=== PATIENT | female | born 1960 | race Caucasian/White ===

== ENCOUNTER 2016-07-05 02:36 | Emergency (ER) | payer MEDICAID ==
[2016-07-05 03:00] VITALS: RESP 18
--- NOTE | 2016-07-05 03:02 | C.PDOC ---
History Of Present Illness Patient is a 56 year old male who presents to the ER with a complaint of chest pain after doing heavy lifting at work tonight. Patient states the pain radiates from the anterior chest wall to the back and pain increases with deep breath and movement. Denies nausea, weakness, or any other injury. Chief Complaint (Nursing): Chest Pain History Per: Patient History/Exam Limitations: no limitations Onset/Duration Of Symptoms: Hrs Current Symptoms Are (Timing): Still Present Associated Symptoms: denies: Nausea Exacerbating Factors: Movement, Deep Breathing Past Medical History Reviewed: Historical Data, Nursing Documentation, Vital Signs Vital Signs: Last Vital Signs Temp 97.8 F 07/05/16 02:53 Pulse 57 L 07/05/16 02:53 Resp 18 07/05/16 02:53 BP 164/89 H 07/05/16 02:53 Pulse Ox 99 07/05/16 04:23 - Medical History PMH: No Chronic Diseases Surgical History: No Surg Hx Family History: States: Unknown Family Hx - Social History Hx Alcohol Use: No Hx Substance Use: No Review Of Systems Cardiovascular: Positive for: Chest Pain (Anterior chest wall) Gastrointestinal: Negative for: Nausea Musculoskeletal: Positive for: Back Pain. Negative for: Neck Pain, Shoulder Pain, Leg Pain Neurological: Negative for: Weakness Physical Exam - Physical Exam Appears: Well, Non-toxic, No Acute Distress Skin: Normal Color, Warm, Dry Head: Atraumatic, Normacephalic Oral Mucosa: Moist Chest: Tenderness (On palpation, anterior wall) Cardiovascular: Rhythm Regular, No Murmur Respiratory: Normal Breath Sounds, No Rales, No Rhonchi, No Wheezing Gastrointestinal/Abdominal: Soft, No Tenderness Neurological/Psych: Oriented x3, Normal Speech, Normal Cognition ED Course And Treatment - Laboratory Results Result Diagrams: 07/05/16 03:22 07/05/16 03:22 ECG: Interpreted By Me, Viewed By Me ECG Rhythm: Sinus Bradycardia ECG Interpretation: Normal, No Acute Changes Interpretation Of ECG: sinua bradycardia, no acute changes, normal tracing. Rate From EC O2 Sat by Pulse Oximetry: 99 (Room air) Pulse Ox Interpretation: Normal Progress Note: Patient was evaluated and cleared by crisis. Disposition Discussed With : Diego Garcia - Disposition Referrals: [facility] at [facility] [Outside] Disposition: HOME/ ROUTINE Disposition Time: 05:10 Condition: STABLE Prescriptions: Naproxen [Naprosyn Tab] 250 mg PO TIDPC #20 tab Instructions: Depression (DC), Chest Wall Pain (ED) Forms: Gen Discharge Inst Kittitian - POA Present On Arrival: None - Clinical Impression Clinical Impression: Depressive disorder, Chest wall pain - Scribe Statement The provider has reviewed the documentation as recorded by the Scribclarke Bethea All medical record entries made by the Leviibe were at my direction and personally dictated by me. I have reviewed the chart and agree that the record accurately reflects my personal performance of the history, physical exam, medical decision making, and the department course for this patient. I have also personally directed, reviewed, and agree with the discharge instructions and disposition.
[2016-07-05 03:31] LABS: BASO % 0.3 % (0.0-2.0); EOS # 0.3 K/uL (0.0-0.7); EOS % 2.7 % (0.0-4.0); HEMATOCRIT 34.5 % (34.0-47.0); LYMPH # 6.2 K/uL (1.0-4.3); LYMPH % 62.7 % (20.0-40.0); MEAN CELL VOLUME 79.4 fL (81.0-99.0); MEAN CORPUSCULAR HEMOGLOBIN 25.8 pg (27.0-31.0); MEAN CORPUSCULAR HGB CONC 32.4 g/dL (33.0-37.0); MONO # 0.7 K/uL (0.0-0.8); MONO % 6.8 % (0.0-10.0); PLATELET COUNT 379 K/uL (130-400); RED CELL DISTRIBUTION WIDTH 13.2 % (11.5-14.5); WHITE BLOOD COUNT 9.8 K/uL (4.8-10.8)
[2016-07-05 03:37] LABS: CHLORIDE 103 mmol/L (98-107); POTASSIUM 3.6 mmol/L (3.6-5.2); SODIUM 142 mmol/L (132-148)
[2016-07-05 03:39] LABS: GFR AFRICAN-AMERICAN > 60
[2016-07-05 03:40] LABS: ALB/GLOB RATIO 1.2 (1.0-2.1); ALKALINE PHOSPHATASE 76 U/L (38-126); ALT/SGPT 14 U/L (9-52); AST/SGOT 29 U/L (14-36); BLOOD UREA NITROGEN 12 mg/dL (7-17); CALCIUM 8.6 mg/dl (8.6-10.4); CARBON DIOXIDE 22 mmol/L (22-30); GLUCOSE,RANDOM 101 mg/dL (65-105); TOTAL PROTEIN 7.9 g/dL (6.3-8.3)
[2016-07-05 04:51] LABS: EOSINOPHIL 2 % (0-4); NEUTROPHIL 30 % (50-75); REACTIVE LYMPHOCYTES 4 % (0-0); TOTAL CELLS COUNTED 100
[2016-07-05 05:18] VITALS: BP 130/77; PULSE 50; TEMP 98; O2SAT 100
--- NOTE | 2016-07-05 08:23 | RAD ---
HISTORY: chest pain COMPARISON: No prior. TECHNIQUE: Chest PA and lateral FINDINGS: LUNGS: No active pulmonary disease. PLEURA: No significant pleural effusion identified. No pneumothorax apparent. CARDIOVASCULAR: Normal. OSSEOUS STRUCTURES: No significant abnormalities. VISUALIZED UPPER ABDOMEN: Normal. OTHER FINDINGS: None. IMPRESSION: No active disease.
--- NOTE | 2016-07-10 09:10 | CARD ---
APPROVED REPORT EKG Measurement Heart [id number] OR [id number] <Conclusion> Sinus bradycardia Otherwise normal ECG
== END 2016-07-05 06:28 | disposition home or self-care (01) ==
LOC: C.ER 02:36
DX: R07.89 Other chest pain (principal); F32.9 Major depressive disorder, single episode, unspecified
CPT/HCPCS: 71020; 80053; 84484; 85025; 85378; 93005; 96374; 99285; J1885

== ENCOUNTER 2017-04-18 10:57 | Emergency (ER) | payer MEDICAID, OTHER ==
[2017-04-18 11:08] VITALS: BMI 22.6
[2017-04-18] MEDS ORDERED: Tetanus/Diphtheria Toxoids 0.5 ml Syringe IM ONE ×2 (11:44→13:03)
--- NOTE | 2017-04-18 11:53 | C.PDOC ---
History Of Present Illness <Pk Lind - Last Filed: 04/18/17 23:06> <Michelle Rollins - Last Filed: 04/19/17 11:06> 56-year-old female, presents to the emergency department for evaluation of facial trauma, right wrist deformity, developed since yesterday after sustaining mechanical fall. Patient slipped and fell forward on ice, and scratched her nose, she tried to break her fall with her hand, and when she woke up this morning, she noted deformity to the area with worsening pain, resulting in her coming to the ED for evaluation. Denies LOC, syncope, severe headache, dizziness, visual changes, focal deficits, neck pain, CP, SOB, dyspnea ,abd. pain, N/V/D, back pain, denies weakness, sensory or vascular deficits to B /L UEs and LEs. Ambulate to Ed for evaluation, not in any apparent distress. ( Michelle Rollins) <Pk Lind - Last Filed: 04/18/17 23:06> - HPI History Per: Patient History/Exam Limitations: no limitations Injury Occurred (Timing): Days Ago: (1) Location Of Injury: Right: Hand, Wrist <Michelle Rollins - Last Filed: 04/19/17 11:06> - HPI Time Seen by Provider: 04/18/17 11:33 Chief Complaint (Nursing): Trauma Past Medical History Reviewed: Historical Data, Nursing Documentation, Vital Signs Family History: States: No Known Family Hx - Social History Hx Alcohol Use: No Hx Substance Use: No <Michelle Rollins - Last Filed: 04/19/17 11:06> Vital Signs: Last Vital Signs Temp 97.5 F L 04/18/17 18:36 Pulse 51 L 04/18/17 23:08 Resp 16 04/18/17 23:08 BP 110/81 04/18/17 23:08 Pulse Ox 98 04/18/17 23:08 Review Of Systems Respiratory: Negative for: Shortness of Breath Gastrointestinal: Negative for: Vomiting Musculoskeletal: Positive for: Hand Pain. Negative for: Neck Pain, Back Pain Neurological: Negative for: Weakness, Numbness, Headache, Dizziness <Michelle Rollins - Last Filed: 04/19/17 11:06> Physical Exam - Physical Exam Appears: Well, Non-toxic, No Acute Distress Skin: Warm, Dry Head: Normacephalic Eye(s): bilateral: PERRL Ear(s): Bilateral: Normal Nose: No Epistaxis, No Deformity, No Septal Hematoma, Other (superficial abrasion to the tip of nose) Oral Mucosa: Moist Tongue: Normal Appearing Lips: Normal Appearing Throat: Normal, No Erythema, No Drooling Neck: Normal ROM, No Midline Cervical Tenderness, No Paracervical Tenderness, No Step Off Deformity, Supple Chest: Symmetrical Cardiovascular: Rhythm Regular, No Murmur Respiratory: No Decreased Breath Sounds, No Accessory Muscle Use, No Rales, No Rhonchi, No Stridor, No Wheezing, Other (equal sounds bilaterally) Gastrointestinal/Abdominal: Soft, No Tenderness, No Distention, No Guarding Back: No Vertebral Tenderness, No Paraspinal Tenderness Extremity: Normal ROM (B/L LEs, and LUE), Tenderness (Right wrist), Capillary Refill (<2 seconds), Deformity (Right wrist, skin intact) Pulses: Right Radial: Normal, Left Femoral: Normal Neurological/Psych: Oriented x3, Normal Speech, Normal Motor, Normal Sensation, Normal Reflexes <Michelle Rollins - Last Filed: 04/19/17 11:06> ED Course And Treatment Reevaluation Time: 23:06 Reassessment Condition: Improved (pt hypersomnolent after procedural sedation and then ativan for probable emergence reactin to Ketamine, now has rested a few hours, wrist pain mild/moderate, ambulating through hallways, ,stable for d/ c home.) <Pk Lind - Last Filed: 04/18/17 23:06> O2 Sat by Pulse Oximetry: 96 (RA) Pulse Ox Interpretation: Normal - Other Rad Right wrist X-Ray: Read By Radiologist Interpretation: IMPRESSION: Comminuted impacted fracture of the distal radius. Soft tissue swelling. Osseous demineralization. - CT Scan/US CT max/face Other Rad Studies (CT/US): Radiology Report Reviewed CT/US Interpretation: Findings: Mild anterior midline scalp soft tissue swelling. The facial bones appear intact without acute displaced fracture. The orbits appear unremarkable. Temporomandibular joints are located. The mastoid air cells appear clear. The paranasal sinuses appear clear without air-fluid levels. Left tonsillar calcifications. The visualized brain appears unremarkable. Impression: Mild anterior midline scalp soft tissue swelling. No acute fracture identified. See above. <Michelle Rollins - Last Filed: 04/19/17 11:06> Disposition Doctor Will See Patient In The: Office Counseled Patient/Family Regarding: Studies Performed, Diagnosis <Pk Lind - Last Filed: 04/18/17 23:06> Counseled Patient/Family Regarding: Need For Followup - Disposition Disposition Time: 12:56 <Michelle Rollins - Last Filed: 04/19/17 11:06> - Disposition Referrals: [facility] [Outside] [facility] at [facility] [Outside] Eldon Falcon MD [Staff Provider] - Disposition: HOME/ ROUTINE Condition: STABLE Additional Instructions: keep sling in place to elevate R wrist/forearm ice packs to the wrist 1/2 hour per hour, nothing hot. Motrin 400-600 mg every 6 hours as needed for pain and swelling Tramadol 50 mg (narcotic pain reliever) 1 tab every 6 hours as needed for pain and sleep Call for appt to follow-up with Dr. Falcon- [facility] [employer] [facility] Prescriptions: traMADol [Ultram] 50 mg PO Q6H PRN #20 tab PRN Reason: pain Instructions: Wrist Fracture in Adults (ED) Forms: [facility] ([place]) - Clinical Impression Clinical Impression: Wrist fracture, right Critical Care Time <Pk Lind - Last Filed: 04/18/17 23:06> - Scribe Statement The provider has reviewed the documentation as recorded by the Scribe (Tegna Yoder) <Michelle Rollins - Last Filed: 04/19/17 11:06> - Scribe Statement All medical record entries made by the Scribe were at my direction and personally dictated by me. I have reviewed the chart and agree that the record accurately reflects my personal performance of the history, physical exam, medical decision making, and the department course for this patient. I have also personally directed, reviewed, and agree with the discharge instructions and disposition. (Michelle Rollins) ED Procedural Sedation <Pk Lind - Last Filed: 04/18/17 23:06> - Pre Anesthesia Assessment Past Medical History: Medications Reviewed Previous Surgies: Reviewed Family History/Social History: Reviewed - Physical Exam/Review of Systems Vital Signs Reviewed: Yes Cardiovascular: Regular Rate and Rhythm, Normal S1, S2 Respiratory/Chest: Clear to Auscultation, Good Air Exchange. denies: Accessory Muscle Use Neurological: GCS=15, Speech Normal Mental Status: Alert and Oriented X 3 - Pre-Procedure Airway Assessment History of difficult intubation or surgical airway (i.e trach):: No Diagnosis of sleep apnea:: No ASA Criteria: 1 - Healthy, normal. 2 - Mild systemic disease (No functional limitations, mildline obesity, DM withot complications, Hypertention). 3 - Severe systemic disease (Some functional limitation, stable angina, morbid obesity, controlled COPD/Asthma/CHF). 4 - Sever systemic disease constant threat to life (Unstable angina, active symptoms of COPD/Asthma, CHF/ Hypertension. 5 - Moribund ASA Clarification: ASA I <Michelle Rollins - Last Filed: 04/19/17 11:06> - Pre Anesthesia Assessment Chief Complaint: Trauma - Intra-Procedure (Medications) Medications Given: Discontinued Medications Sodium Chloride (Sodium Chloride 0.9%) 1,000 mls @ 1,000 mls/hr IV .Q1H ONE Stop: 04/18/17 18:02 Last Admin: 04/18/17 17:16 Dose: 1,000 mls/hr eMAR Start Stop Document 04/18/17 17:16 MARA (Rec: 04/18/17 17:16 MARA [id number]) Intravenous Solution Start Date 04/18/17 Start Time 17:16 End Date 04/18/17 End time 18:16 Total Infusion Time 60 Ketamine HCl (Ketalar) 100 mg IV STAT STA Stop: 04/18/17 14:06 Lorazepam (Ativan) 0.5 mg IVP STAT STA Stop: 04/18/17 16:12 Last Admin: 04/18/17 16:12 Dose: IVP Administration Document 04/18/17 16:12 MARA (Rec: 04/18/17 19:07 MARA [id number]) Charges for Administration # of IVP Administrations 1 Lorazepam (Ativan) 1 mg IVP ONCE ONE Stop: 04/18/17 16:11 Last Admin: 04/18/17 16:12 Dose: 1 mg IVP Administration Document 04/18/17 16:12 MARA (Rec: 04/18/17 19:06 MARA [id number]) Charges for Administration # of IVP Administrations 1 Morphine Sulfate (Morphine) 2 mg IM STAT STA Stop: 04/18/17 11:45 Last Admin: 04/18/17 11:45 Dose: 2 mg MAR Pain Assessment Document 04/18/17 11:45 NR (Rec: 04/18/17 11:51 [id number] Pain Reassessment Is this a pain reassessment? No Sleep Is patient sleeping during reassessment? No Presence of Pain Presence of Pain Yes Location Left, Right or Bilateral Right Pain Location Body Site Arm Description Description Intermittent Intensity of Pain at present 8 Acceptable Level of Pain 5 Pain Behavior Withdrawal from Touch IM Administration Charges Document 04/18/17 11:45 NRC (Rec: 04/18/17 11:51 [id number]) Injection Site MAR Injection Site Left Deltoid Charges for Administration # of IM Administrations 1 Re-Assess: MAR Pain Assessment Document 04/18/17 12:15 LC (Rec: 04/18/17 12:58 LC [id number]) Pain Reassessment Is this a pain reassessment? Yes Sleep Is patient sleeping during reassessment? No Presence of Pain Presence of Pain Yes Pain Scale Used Pain Scale Used Numeric Tetanus/Diphtheria Toxoids Adsorbed (Tenivac 0.5 Ml) 0.5 ml IM .ONCE ONE Stop: 04/18/17 11:45 Last Admin: 04/18/17 13:06 Dose: 0.[address] [facility] Immunization Data Document 04/18/17 13:06 LC (Rec: 04/18/17 13:06 LC [id number]) Immunization Data Vaccine Information Sheet Given Yes Immunization Registry Document 04/18/17 13:06 LC (Rec: 04/18/17 13:06 LC [id number]) Immunization Registry Consent Date 04/18/17 - Post-Procedure Post Procedure Note: Consent for procedure explained and signed. Finger trap with counter traction. Patient tolerated procedure well. Post-reduction xray, orthoglass splint applied. Pt was placed in OBS after conscious sedation. After procedural consious sedation, pt appeared combative and anxious, was screamiing in ED. ordered Ativan 1mg IV. Pt was placed on card and PulseOx monitor. Pt was OBS for 3 hours At 1900, family at bedside, pt is sitting on bed, drinking fluids. case was turned to further OBS, re-eval and dispo (Michelle Rollins)
--- NOTE | 2017-04-18 12:24 | RAD ---
PROCEDURE: Radiographs of the right elbow. HISTORY: injury COMPARISON: None available. FINDINGS: BONES: No acute displaced fracture. JOINTS: No dislocation. SOFT TISSUES: Unremarkable. No evidence of radiopaque foreign body. JOINT EFFUSION: No significant joint effusion. OTHER FINDINGS: None IMPRESSION: No acute displaced fracture, dislocation, or significant joint effusion identified. If symptoms persist, or if there is continued clinical concern, x-ray follow-up in 7-10 days should be considered.
--- NOTE | 2017-04-18 12:34 | RAD ---
PROCEDURE: Right Wrist Radiographs. HISTORY: injury COMPARISON: None available. FINDINGS: BONES: Comminuted impacted fracture of the distal radius. The remainder visualized osseous structures appear intact. Osseous demineralization. JOINTS: No dislocation. SOFT TISSUES: Soft tissue swelling. No evidence of radiopaque foreign body OTHER FINDINGS: None. IMPRESSION: Comminuted impacted fracture of the distal radius. Soft tissue swelling. Osseous demineralization.
--- NOTE | 2017-04-18 12:52 | CT ---
CT maxillofacial bones without IV contrast Indication: Injury Comparison: None available. Technique: Axial computed tomography images were obtained of the maxillofacial bones without the use of intravenous contrast. Coronal and sagittal reformatted images were generated and reviewed. This CT exam was performed using 1 or more of the following dose reduction techniques: Automated exposure control, adjustment of the MAA and/or kV according to patient size, and/or use of iterative reconstruction technique. Radiation dose: Total exam DLP = 692.14 mGy-cm. Findings: Mild anterior midline scalp soft tissue swelling. The facial bones appear intact without acute displaced fracture. The orbits appear unremarkable. Temporomandibular joints are located. The mastoid air cells appear clear. The paranasal sinuses appear clear without air-fluid levels. Left tonsillar calcifications. The visualized brain appears unremarkable. Impression: Mild anterior midline scalp soft tissue swelling. No acute fracture identified. See above.
[2017-04-18] MEDS ORDERED: Ketamine 50 mg/ml Inj (10 ml) IV STA (14:05)
[2017-04-18] MEDS ORDERED: Ketamine 50 mg/ml Inj (10 ml) ONE (15:30)
[2017-04-18] MEDS ORDERED: Sodium Chloride 0.9% 1,000 ML IV ONE (17:03)
[2017-04-18 18:37] VITALS: RESP 16; TEMP 97.5
--- NOTE | 2017-04-18 20:17 | RAD ---
Indication: Postreduction views Right wrist radiographs Comparison: Right wrist radiographs performed earlier the same day. Findings: Images are obtained through a cast obscures osseous detail. Comminuted distal radial fracture re-identified. Suspect fracture of the distal ulna as well. Soft tissue swelling. Impression: Comminuted distal radial fracture re-identified. Suspect fracture of the distal ulna as well. Soft tissue swelling.
[2017-04-18 23:08] VITALS: BP 110/81; PULSE 51
[2017-04-19 11:02] VITALS: O2SAT 96
== END 2017-04-18 23:22 | disposition home or self-care (01) ==
LOC: C.ER 10:57
DX: S52.501A Unspecified fracture of the lower end of right radius, initial encounter for closed fracture (principal); W00.0XXA Fall on same level due to ice and snow, initial encounter
CPT/HCPCS: 25605; 70486; 73080; 73110; 90471; 90714; 96361; 96372; 96374; 99285; J2060; J2270; J7040